=== PATIENT | female | born 1980 | race Caucasian/White ===

== ENCOUNTER 2024-02-08 10:59 | Emergency (ER) | payer OTHER ==
[2024-02-08] MEDS ORDERED: ONDANSETRON 4 MG/2 ML VIAL ONE (11:11)
[2024-02-08] MEDS ORDERED: ACETAMINOPHEN INJECTION 100 ML ONE (11:11)
[2024-02-08] MEDS: ACETAMINOPHEN 1000 MG/100 ML BAG IVPB ONE (11:28)
[2024-02-08] MEDS: SODIUM CHLORIDE 0.9% 500 ML INFUS.BAG IV ONE (11:28)
[2024-02-08] MEDS: ONDANSETRON 4 MG/2 ML VIAL IVPUSH ONE (11:28)
[2024-02-08 11:51] VITALS: BP 113/66; RESP 20; TEMP 98.4; BMI 22.8
[2024-02-08 11:51] LABS: HEMATOCRIT 39.8 % (32.4-45.2); HEMOGLOBIN 13.6 G/dL (10.7-15.3); MCH 30.6 pg (25.7-33.7); MCHC 34.3 g/dl (32.0-36.0); MEAN CELL VOLUME 89.2 fl (80-96); MEAN PLT VOLUME 9.9 fl (7.5-11.1); RBC 4.46 10^6/uL (3.60-5.2); WHITE BLOOD COUNT 2.8 10^3/uL (4.0-10.8)
[2024-02-08 12:12] LABS: ALBUMIN 4.2 g/dl (3.4-5.0); ALK PHOS 62 U/L (45-117); ANION GAP 9 mmol/L (4-13); BILIRUBIN,TOTAL 0.5 mg/dl (0.2-1); CALCIUM 8.6 mg/dl (8.5-10.1); CHLORIDE 102 mmol/L (98-107); CO2 24 mmol/L (21-32); CREATININE 0.9 mg/dl (0.6-1.3); GLUCOSE,RANDOM 91 mg/dl (74-106); POTASSIUM 3.5 mmol/L (3.5-5.1); SGOT/AST 45 U/L (15-37); SGPT/ALT 28 U/L (7-52); SODIUM 135 mmol/L (136-145); TOT PROT 6.6 g/dl (6.4-8.2)
[2024-02-08 12:22] LABS: PLATELET ESTIMATE DECREASED
[2024-02-08 13:38] LABS: HIV INTERPRETATION NEGATIVE (NEGATIVE)
[2024-02-08 13:40] VITALS: PULSE 70
== END 2024-02-08 13:58 | disposition home or self-care (01) ==
LOC: FER 10:59
PROC: 3E033NZ Introduction of Analgesics, Hypnotics, Sedatives into Peripheral Vein, Percutaneous Approach (ICD-10-PCS; principal; 2024-02-08)
PROC: 3E033GC Introduction of Other Therapeutic Substance into Peripheral Vein, Percutaneous Approach (ICD-10-PCS; 2024-02-08)
DX: K52.9 Noninfective gastroenteritis and colitis, unspecified (principal); R11.2 Nausea with vomiting, unspecified; E86.0 Dehydration; R53.83 Other fatigue; R10.13 Epigastric pain
CPT/HCPCS: 36415; 80053; 83690; 84703; 85027; 86803; 87389; 99284-25; J0131